=== PATIENT | female | born 1995 | race Caucasian/White ===

== ENCOUNTER 2018-01-19 14:11 | Emergency (ER) | payer MEDICAID | END 2018-01-19 18:52 | disposition home or self-care (01) | LOC: E/R 14:11 | DX: J03.90 Acute tonsillitis, unspecified (principal) | CPT/HCPCS: 99282 ==

== ENCOUNTER 2018-03-24 15:13 | Emergency (ER) | payer MEDICAID ==
[2018-03-24] MEDS: IBUPROFEN 600 MG TAB PO (16:14)
[2018-03-24] MEDS: KETOROLAC 30 MG INJ IM (17:50)
== END 2018-03-24 18:47 | disposition home or self-care (01) ==
LOC: FTE 15:13
DX: R51 Headache (principal)
CPT/HCPCS: 81025; 96372; 99284-25

== ENCOUNTER 2018-04-20 14:20 | Emergency (ER) | payer MEDICAID ==
[2018-04-20] MEDS: KETOROLAC 30 MG INJ IM (15:17)
== END 2018-04-20 17:09 | disposition home or self-care (01) ==
LOC: FTE 14:20
DX: M25.511 Pain in right shoulder (principal)
CPT/HCPCS: 73030; 73030-RT; 81025; 96372; 99284-25

== ENCOUNTER 2019-02-16 08:15 | Emergency (ER) | payer MEDICAID ==
[2019-02-16 09:27] LABS: ADD MAN DIFF? NO
[2019-02-16] MEDS: ONDANSETRON 4 MG INJ IV (09:33)
[2019-02-16] MEDS: DIPHENHYDRAMINE 50 MG INJ IV (09:33)
[2019-02-16] MEDS: SOD CHLORIDE 0.9% 1,000 ML IV ×2 (09:34→11:42)
[2019-02-16 09:41] LABS: WHITE BLOOD COUNT 19.4 10^3/ul (4.8-10.8)
[2019-02-16 09:41] LABS: ADD UMIC YES; BASOPHIL # 0.1 10^3/ul (0.0-0.1); BASOPHILS % 0.3 % (0.0-2.0); EOSINOPHILS % 0.1 % (0.0-7.0); HEMOGLOBIN 12.9 g/dl (12.0-16.0); LYMPHOCYTES # 1.5 10^3/ul (0.8-2.9); LYMPHOCYTES % 7.6 % (15.0-51.0); MEAN CORPUSCULAR HEMOGLOBIN 28.5 pg (29.0-33.0); MEAN CORPUSCULAR HGB CONC 33.1 g/dl (32.0-37.0); MEAN CORPUSCULAR VOLUME 86.1 fl (82.0-101.0); MEAN PLATELET VOLUME 12.7 fl (7.4-10.4); MONOCYTE # 1.2 10^3/ul (0.3-0.9); MONOCYTES % 6.1 % (0.0-11.0); NEUTROPHIL # 16.6 10^3/ul (1.6-7.5); NEUTROPHILS % 85.4 % (39.0-77.0); PLATELET COUNT 178 10^3/UL (140-415); RED BLOOD COUNT 4.53 10^6/ul (4.20-5.40); RED CELL DISTRIBUTION WIDTH 13.9 % (11.5-14.5); UR ASCORBIC ACID NEGATIVE (NEGATIVE); UR BACTERIA FEW /HPF (NONE SEEN); UR BILIRUBIN (Dip) NEGATIVE (NEGATIVE); UR BLOOD (Dip) NEGATIVE (NEGATIVE); UR CLARITY SLIGHTLY CLOUDY (CLEAR); UR COLOR YELLOW (YELLOW); UR GLUCOSE (Dip) NEGATIVE (NEGATIVE); UR KETONES (Dip) NEGATIVE (NEGATIVE); UR LEUKOCYTE ESTERASE (Dip) TRACE Leu/ul (NEGATIVE); UR MUCUS FEW /HPF (NONE SEEN); UR NITRITE (Dip) NEGATIVE (NEGATIVE); UR RBC 1 /HPF (0-5); UR SPECIFIC GRAVITY (Dip) 1.017 (1.003-1.030); UR SQUAMOUS EPITHELIAL CELL FEW /HPF (FEW); UR TOTAL PROTEIN (Dip) NEGATIVE (NEGATIVE); UR UROBILINOGEN (Dip) NEGATIVE (NEGATIVE); UR WBC 4 /HPF (0-5)
[2019-02-16 09:49] LABS: ALANINE AMINOTRANSFERASE 19 IU/L (13-69); ALBUMIN 4.5 g/dl (3.3-4.9); ALKALINE PHOSPHATASE 90 IU/L (42-121); ANION GAP 10 (5-13); ASPARTATE AMINO TRANSFERASE 18 IU/L (15-46); BLOOD UREA NITROGEN 7 mg/dl (7-20); CALCIUM 9.3 mg/dl (8.4-10.2); CARBON DIOXIDE 23 mmol/L (21-31); CHLORIDE 104 mmol/L (97-110); CREATININE 0.67 mg/dl (0.44-1.00); Estimated GFR > 60 mL/min (>60); GLUCOSE 119 mg/dl (70-220); SODIUM 137 mmol/L (135-144); TOTAL PROTEIN 7.7 g/dl (6.1-8.1)
[2019-02-16] MEDS: KETOROLAC 30 MG INJ IV (10:01)
[2019-02-16 12:04] LABS: CSF RBC 0 /uL (0-0); CSF WBC 2 /cmm (0-10)
[2019-02-16 12:05] LABS: CSF RBC 0 /uL (0-0); CSF WBC 1 /cmm (0-10)
[2019-02-16 12:11] LABS: CSF CLARITY CLEAR; CSF#TUBE COUNT TUBE#4; CSF#TUBES REC'D 4
[2019-02-16 12:11] LABS: CSF COLOR COLORLESS
[2019-02-16 12:12] LABS: CSF CLARITY CLEAR; CSF COLOR COLORLESS; CSF#TUBE COUNT TUBE#1; CSF#TUBES REC'D 4
[2019-02-16 12:50] LABS: GLUCOSE,CSF 63 mg/dl (50-80)
[2019-02-16 15:15] LABS: TOTAL PROTEIN,CSF 23 mg/dl (12-60)
== END 2019-02-16 15:39 | disposition home or self-care (01) ==
LOC: FTE 08:15
DX: R51 Headache (principal); R50.9 Fever, unspecified
CPT/HCPCS: 62270; 70450; 80053; 81001; 82945; 83605; 84157; 84703; 85025; 87070; 89051; 96361; 96374; 96375; 99285-25

== ENCOUNTER 2019-05-16 12:18 | Emergency (ER) | payer MEDICAID | END 2019-05-16 15:55 | disposition home or self-care (01) | LOC: FTE 12:18 | DX: M94.0 Chondrocostal junction syndrome [Tietze] (principal) | CPT/HCPCS: 71045; 93005; 99284-25 ==